=== PATIENT | male | born 1995 | race Caucasian/White ===

== ENCOUNTER 2017-02-23 20:53 | Emergency (ER) | payer MEDICAID ==
[~2017-02-23] VITALS: Ht 177.8 cm; Wt 61.2 kg
[2017-02-23 20:55] VITALS: BP_SYST 136
[2017-02-23 21:20] VITALS: BP_SYST 136
== END 2017-02-23 21:20 | disposition home or self-care (01) ==
LOC: SED 20:53
DX: J02.9 Acute pharyngitis, unspecified (principal)
CPT/HCPCS: 99283

== ENCOUNTER 2017-08-07 22:05 | Emergency (ER) | payer MEDICAID ==
[~2017-08-07] VITALS: Ht 177.8 cm; Wt 77.1 kg
[2017-08-07 22:15] VITALS: BP_SYST 148
[2017-08-08 00:30] VITALS: BP_SYST 144
== END 2017-08-08 00:30 | disposition home or self-care (01) ==
LOC: SED 22:05
DX: J10.1 Influenza due to other identified influenza virus with other respiratory manifestations (principal); J45.909 Unspecified asthma, uncomplicated
CPT/HCPCS: 36415; 86710; 99284